=== PATIENT | female | born 1985 | race Caucasian/White ===

== ENCOUNTER 2017-12-29 12:18 | Emergency (ER) | payer OTHER ==
[~2017-12-29] VITALS: Ht 165.1 cm; Wt 127.0 kg
[~2017-12-29 12:18] MED LIST: CITA10TA8 PO; FERR325T59 PO; HYDR-925 PO; LEVO125T6 PO; LEVO175T2 PO; METR500T PO; NITR100C58 PO; NORG1TAB6 PO; PANT40TA3 PO; PNV1TABL PO; PREN1TAB59 PO; [UNRECOGNIZED DRUG - CODE] IM
--- NOTE | 2017-12-29 12:23 | NUR ---
ARRIVAL PT ARRIVED AMBULATORY TO ER 6 C/O NAUSEA, VOMITING AND DIARRHEA ONSET THIS AM AT 0700. NO ABDOMINAL PAIN. NO ACUTE DISTRESS NOTED. EDP NOTIFIED OF PT ARRIVAL.
[2017-12-29 12:33] VITALS: BP 135/90
[2017-12-29] MEDS ORDERED: IMODIUM PO STA (12:46)
[2017-12-29] MEDS ORDERED: ZOFRAN ODT SL STA (12:46)
--- NOTE | 2017-12-29 12:50 | ER.PDOC ---
General Chief Complaint: Nausea,Vomiting,Diarrhea Stated Complaint: N/V/D Time seen by MD: 12:47 Source: patient Exam Limitations: no limitations History of Present Illness Initial Comments Nausea/vomiting/diarrhea this morning. Diarrhea x4 with occasional abdominal cramps. Severity/Quality: mild, cramping Associated Symptoms (vomiting): mild vomiting Associated Symptoms (diarrhea): watery Allergies: Coded Allergies: No Known Allergies (Unverified , 06/25/15) Home Meds Active Scripts Hydrocodone Bit/Acetaminophen (NORCO 7.5-325 TABLET) 7.5-3,251 Ea Tablet, 2 EACH PO Q4H PRN for Pain 7-10 when tolerating PO, #60 TABLET 0 Refills Prov:JESSICA HILL MD 06/28/15 Reported Medications Pantoprazole Sodium (PROTONIX) 40 Mg Tablet.dr, 1 TAB PO DAILY, #30 TAB 5 Refills 04/14/15 Levothyroxine Sodium (SYNTHROID) 175 Mcg Tablet, 175 MCG PO DAILY for HYPOTHYROID, #30 TABLET 1 Refill 09/20/13 Vital Signs First Vital Signs Date Time Temp Pulse Resp B/P (MAP) Pulse Ox O2 Delivery O2 Flow Rate FiO2 12/29/17 12:30 97.6 87 17 100 Room Air 97.6 12/29/17 12:33 135/90 (105) Last Vital Signs Date Time Temp Pulse Resp B/P (MAP) Pulse Ox O2 Delivery O2 Flow Rate FiO2 12/29/17 12:33 97.6 92 17 135/90 (105) 100 Room Air 97.6 Past Medical History Medical History: thyroid disease Surgical History: LMP (females 10-50): this week Social History Smoking: non-smoker Alcohol Use: none Drug Use: none Constitutional: no symptoms reported EENTM: no symptoms reported Respiratory: no symptoms reported Cardiovascular: no symptoms reported Gastrointestinal: see HPI Genitourinary: no symptoms reported All Other Systems: Reviewed and Negative Physical Exam General Appearance: No Apparent Distress, WD/WN HEENT: PERRL/EOMI, Normal ENT Inspection, TMs Normal, Pharynx Normal Neck: Non-Tender, Full Range of Motion, Supple, Normal Inspection Respiratory: chest non-tender, lungs clear, normal breath sounds, no respiratory distress, no accessory muscle use Cardiovascular: Normal Peripheral Pulses, Regular Rate, Rhythm, No Edema, No Gallop, No JVD, No Murmur Gastrointestinal: Normal Bowel Sounds, Non Tender, Soft Back: Normal Inspection, No CVA Tenderness, No Vertebral Tenderness Extremities: Normal Range of Motion, Non-Tender, Normal Inspection, No Pedal Edema, No Calf Tenderness, Normal Capillary Refill, Pelvis Stable Neurologic/Psychiatric: department administrator II-XII NML as Tested, No Motor/Sensory Deficits, Alert, Normal Mood/Affect, Oriented x 3 Skin: Normal Color, Warm/Dry Lymphatic: No Adenopathy Departure Time of Disposition: 12:48 Disposition: 01 HOME, SELF-CARE Impression: Primary Impression: Gastroenteritis Condition: Improved Referrals: DAKOTAH OWUSU MD (PCP) PRIMARY CARE PROVIDER Additional Instructions: Phenergan Imodium Start feeding with clear liquids and advance diet as tolerated. F/U with your PCP in 2-3 days Duration or Time Spent with Pa: 30 mins MARY WORLEY MD Dec 29, 2017 12:50
[2017-12-29 13:00] VITALS: BP 122/78
[2017-12-29] MEDS ORDERED: ZOFRAN ODT ONE (13:00)
[2017-12-29] MEDS ORDERED: IMODIUM ONE (13:00)
[2017-12-29 13:12] VITALS: BP 135/90
== END 2017-12-29 13:02 | disposition home or self-care (01) ==
LOC: ER 12:18
DX: K52.9 Noninfective gastroenteritis and colitis, unspecified (principal); E07.9 Disorder of thyroid, unspecified; Z79.899 Other long term (current) drug therapy
CPT/HCPCS: 99283; Q0162

== ENCOUNTER 2018-01-01 08:41 | Emergency (ER) | payer OTHER ==
[2018-01-01] MEDS ORDERED: ZOFRAN ODT SL STA (09:07)
[2018-01-01] MEDS ORDERED: LOMOTIL PO STA (09:07)
[2018-01-01] MEDS ORDERED: ZOFRAN ODT ONE ×2 (09:11→10:11)
[2018-01-01] MEDS ORDERED: LOMOTIL ONE (09:11)
[2018-01-01 09:15] VITALS: BP 129/62
--- NOTE | 2018-01-01 09:16 | NUR ---
Lab Lab in for bloodwork. lw
--- NOTE | 2018-01-01 09:17 | NUR ---
Arrival Patient comes to ER with the complaint of nausea vomiting and diahrea. Patient states that she was seen in our ER on Wednesday with the same complaint but has not felt better since she has left. Patient says that she was given phenergran and imodium but did not have the money to get the medication filled at that time. Patient is laying on gurny in stable condition at this time.
--- NOTE | 2018-01-01 09:20 | ER.PDOC ---
General Chief Complaint: Requesting Medical Care Stated Complaint: NAUSEA,VOMITING,DIARRHEA Time seen by MD: 09:00 Source: patient Exam Limitations: no limitations History of Present Illness Severity/Quality: mild Associated Symptoms (diarrhea): mild, watery Prior symptoms/Treatment: Similar symptoms previous, Recenly Seen, Treated by Doctor (non compliance ) Allergies: Coded Allergies: No Known Allergies (Unverified , 06/25/15) Home Meds Active Scripts Hydrocodone Bit/Acetaminophen (NORCO 7.5-325 TABLET) 7.5-3,251 Ea Tablet, 2 EACH PO Q4H PRN for Pain 7-10 when tolerating PO, #60 TABLET 0 Refills Prov:JESSICA HILL MD 06/28/15 Reported Medications Pantoprazole Sodium (PROTONIX) 40 Mg Tablet.dr, 1 TAB PO DAILY, #30 TAB 5 Refills 04/14/15 Levothyroxine Sodium (SYNTHROID) 175 Mcg Tablet, 175 MCG PO DAILY for HYPOTHYROID, #30 TABLET 1 Refill 09/20/13 Vital Signs First Vital Signs Date Time Temp Pulse Resp B/P (MAP) Pulse Ox O2 Delivery O2 Flow Rate FiO2 12/29/17 13:12 92 01/01/18 09:12 97.6 20 99 Room Air 97.6 01/01/18 09:15 129/62 (84) Last Vital Signs Date Time Temp Pulse Resp B/P (MAP) Pulse Ox O2 Delivery O2 Flow Rate FiO2 01/01/18 09:54 80 18 129/62 (84) 97 Room Air 01/01/18 09:15 97.6 97.6 Past Medical History Medical History: no pertinent history Surgical History: Family History Significant Family History: no pertinent family hx Social History Smoking: non-smoker Alcohol Use: none Drug Use: none Reviewed Nursing Reviewed: Vital Signs, Abn. Noted All Other Systems: Reviewed and Negative Physical Exam General Appearance: No Apparent Distress, WD/WN HEENT: PERRL/EOMI, Normal ENT Inspection, TMs Normal, Pharynx Normal Neck: Non-Tender, Full Range of Motion, Supple, Normal Inspection Respiratory: chest non-tender, lungs clear, normal breath sounds, no respiratory distress, no accessory muscle use Gastrointestinal: Normal Bowel Sounds, Non Tender, Soft Back: Normal Inspection, No CVA Tenderness, No Vertebral Tenderness Extremities: Normal Range of Motion, Non-Tender, Normal Inspection, No Pedal Edema, No Calf Tenderness, Normal Capillary Refill, Pelvis Stable 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 NML as Tested, No Motor/Sensory Deficits, Alert, Normal Mood/Affect, Oriented x 3 Skin: Normal Color, Warm/Dry Lymphatic: No Adenopathy Results/Orders Results/Orders Laboratory Tests Test 01/01/18 09:20 White Blood Count 7.2 10^3/uL (4.5-11.0) Red Blood Count 5.14 10^6/uL (4.00-5.20) Hemoglobin 12.1 g/dL (12.0-15.0) Hematocrit 38.6 % (36.0-46.0) Mean Corpuscular Volume 75.1 fL (78-100) Mean Corpuscular Hemoglobin 23.5 pg (26-34) Mean Corpuscular Hemoglobin Concent 31.3 g/dL (33-37) Red Cell Distribution Width 17.0 % (11.5-14.5) Platelet Count 350 10^3/uL (150-400) Mean Platelet Volume 10.8 fL (7.8-11.0) Neutrophils (%) (Auto) 77.0 % (41.0-85.0) Lymphocytes (%) (Auto) 15.8 % (24.0-44.0) Monocytes (%) (Auto) 5.1 % (5.0-12.0) Neutrophils # (Auto) 5.5 10^3/uL (1.8-7.7) Lymphocytes # (Auto) 1.1 10^3/uL (1.0-4.8) Monocytes # (Auto) 0.4 10^3/uL (0.3-0.8) Absolute Immature Granulocyte (auto 0 10^3 u/L (0-2) Eosinophils % 1.8 % (0.0-5.0) Basophils % 0.3 % (0.0-0.2) Basophils # 0.0 10^3/uL (0.0-0.1) Eosinophil Count 0.1 10^3/uL (0.0-0.2) Prothrombin Time 9.6 SEC (9.8-11.9) Prothrombin Time INR (Non-Therap) 1.0 Activated Partial Thromboplast Time 27.6 SEC (24.67-30.72) Urine Collection Type CCMS Urine Color YELLOW (YELLOW) Urine Appearance CLEAR (CLEAR) Urine Bilirubin NEGATIVE MG/DL (NEGATIVE) Urine Ketones NEGATIVE (NEGATIVE) Urine Specific [place] 1.005 (1.005-1.035) Urine pH 6 (5.0-6.0) Urine Protein NEGATIVE (NEGATIVE) Urine Urobilinogen NORMAL (NEGATIVE) Urine Nitrate NEGATIVE (NEGATIVE) Urine Leukocyte Esterase NEGATIVE (NEGATIVE) Urine Blood NEGATIVE (NEGATIVE) Urine Glucose NORMAL (NEGATIVE) Sodium Level 139 mmol/L (132-145) Potassium Level 4.7 mmol/L (3.6-5.2) Chloride Level 103.0 mmol/L (96-109) Carbon Dioxide Level 28.4 mmol/L (20.0-32) Anion Gap 12.3 Blood Urea Nitrogen 10 mg/dL (7-18) Creatinine 0.98 mg/dL (0.59-1.40) Estimated GFR () 79.1 (>/=60) BUN/Creatinine Ratio 10.0 Glucose Level 133 mg/dL (70-110) Calcium Level 9.5 mg/dL (8.4-10.5) Total Bilirubin 0.2 mg/dL (0.2-1.0) Aspartate Amino Transf (AST/SGOT) 16 U/L (0-35) Alanine Aminotransferase (ALT/SGPT) 28 U/L (12-78) Alkaline Phosphatase 88 U/L (50-136) Total Protein 8.1 g/dL (6.4-8.2) Albumin 3.7 g/dL (3.4-5.0) Globulin 4.4 Amylase Level 44 U/L (25-115) Lipase 173 U/L (114-286) Serum HCG, Qualitative NEGATIVE (NEGATIVE) Percent Immature Gran (Cell Imm) 0.00 % (0.00-0.50) Helicobacter pylori Screen POSITIVE (NEGATIVE) Administered Medications Medications (Trade) Dose Ordered Sig/Fer Route PRN Reason Start Time Stop Time Status Last Admin Dose Admin Ondansetron HCl (Zofran Odt) 4 mg STAT STAT SL 01/01/18 09:07 01/01/18 09:09 DC 01/01/18 09:16 Diphenoxylate HCl/ Atropine (Lomotil) 2 each STAT STAT PO 01/01/18 09:07 01/01/18 09:09 DC 01/01/18 09:16 Promethazine HCl (Phenergan) 25 mg STAT STAT IM 01/01/18 09:45 01/01/18 09:48 DC 01/01/18 09:53 Departure Time of Disposition: 10:00 Disposition: 01 HOME, SELF-CARE Impression: Primary Impression: Gastroenteritis Condition: Improved Referrals: DAKOTAH OWUSU MD (PCP) PRIMARY CARE PROVIDER Duration or Time Spent with Pa: 1 hr KRYSTAL ROBERSON MD Jan 01, 2018 09:20
[2018-01-01 09:27] LABS: BASOPHIL % 0.3 % (0.0-0.2); EOSINOPHIL # 0.1 10^3/uL (0.0-0.2); EOSINOPHIL % 1.8 % (0.0-5.0); HEMOGLOBIN 12.1 g/dL (12.0-15.0); LYMPHOCYTES # 1.1 10^3/uL (1.0-4.8); LYMPHOCYTES % 15.8 % (24.0-44.0); MEAN CELL HGB 23.5 pg (26-34); MEAN CELL HGB CONCENTRATION 31.3 g/dL (33-37); MEAN CORP VOLUME 75.1 fL (78-100); MEAN PLATELET VOLUME 10.8 fL (7.8-11.0); MONOCYTES # 0.4 10^3/uL (0.3-0.8); MONOCYTES % 5.1 % (5.0-12.0); NEUTROPHIL # 5.5 10^3/uL (1.8-7.7); WHITE BLOOD CELL 7.2 10^3/uL (4.5-11.0)
[2018-01-01 09:29] LABS: BILIRUBIN,URINE NEGATIVE (NEGATIVE); UROBILINOGEN,URINE NORMAL (NEGATIVE)
[2018-01-01 09:34] LABS: APPEARANCE,URINE CLEAR (CLEAR); UA COLOR YELLOW (YELLOW)
[2018-01-01] MEDS ORDERED: PHENERGAN IM STA (09:45)
[2018-01-01] MEDS ORDERED: PHENERGAN ONE (09:47)
[2018-01-01 09:48] LABS: HCG QUALITATIVE SERUM NEGATIVE (NEGATIVE)
[2018-01-01 09:53] LABS: CALCIUM 9.5 mg/dL (8.4-10.5); CARBON DIOXIDE 28.4 mmol/L (20.0-32)
--- NOTE | 2018-01-01 09:53 | NUR ---
Nause Continues to feel nauseated. Meds given as per doctors order. lw
[2018-01-01 09:54] VITALS: BP 129/62
[2018-01-01 10:53] VITALS: BP 129/62
== END 2018-01-01 10:52 | disposition home or self-care (01) ==
LOC: ER 08:41
DX: K52.9 Noninfective gastroenteritis and colitis, unspecified (principal); R79.1 Abnormal coagulation profile; Z79.899 Other long term (current) drug therapy
CPT/HCPCS: 36415; 80053; 81002; 82150; 83690; 84703; 85025; 85610; 85730; 86677; 96372; 99284; J2550; Q0162 ×2

== ENCOUNTER 2018-03-09 09:45 | Emergency (ER) | payer OTHER ==
[~2018-03-09] VITALS: Ht 165.1 cm; Wt 126.6 kg
[~2018-03-09 09:45] MED LIST changes: +HYDR-3469 PO; -HYDR-925 PO; -PNV1TABL PO; +PNV1TABL31 PO
[2018-03-09 10:04] VITALS: BP 145/101
--- NOTE | 2018-03-09 10:40 | ER.PDOC ---
General Chief Complaint: General Complaint Stated Complaint: HEAD ACHE, HIGH BLOOD PRESSURE Time seen by MD: 10:15 Exam Limitations: no limitations History of Present Illness Initial Comments Pt c/o frontal CRAIG x 4 days-she has taken advil and tylenol and each relieves CRAIG for a few hours but then it returns. She chcked her BP several times and was concerned that it was 130-140 systolic, higher than her usual systolic of 120-130. She denies any chest pain or SOB or blurred or double vision. Timing/Duration: other (4 days) Severity/Quality: moderate Prior Headaches/Recent Trauma: occasional headaches Associated Symptoms: denies symptoms Allergies: Coded Allergies: No Known Allergies (Unverified , 06/25/15) Home Meds Active Scripts Hydrocodone Bit/Acetaminophen (NORCO 7.5-325 TABLET) 7.5-3,251 Ea Tablet, 2 EACH PO Q4H PRN for Pain 7-10 when tolerating PO, #60 TABLET 0 Refills Prov:JESSICA HILL MD 06/28/15 Reported Medications Pantoprazole Sodium (PROTONIX) 40 Mg Tablet.dr, 1 TAB PO DAILY, #30 TAB 5 Refills 04/14/15 Levothyroxine Sodium (SYNTHROID) 175 Mcg Tablet, 175 MCG PO DAILY for HYPOTHYROID, #30 TABLET 1 Refill 09/20/13 Past Medical History Surgical History: LMP (females 10-50): last week Social History Smoking: non-smoker Alcohol Use: none Drug Use: none Reviewed Nursing Reviewed: Vital Signs, Abn. Noted, Nursing Assessment Review of Systems Constitutional: denies no symptoms reported, denies see HPI, denies chills, denies diaphoresis, denies fever, denies malaise, denies weakness, denies other Eyes: denies no symptoms reported, denies see HPI, denies blindness, denies blurred vision, denies drainage, denies decreased acuity, denies foreign body sensation, denies inflammation, denies pain, denies photophobia, denies previous injury, denies shadows, denies tunnel vision, denies vision change, denies contact lenses, denies glasses, denies other Ears, Nose, Mouth, Throat: denies no symptoms reported, denies see HPI, denies ear pain, denies ear discharge, denies nose pain, denies nose discharge, denies epistaxis, denies mouth pain, denies mouth swelling, denies loose teeth, denies throat pain, denies throat swelling Respiratory: denies no symptoms reported, denies see HPI, denies cough, denies orthopnea, denies shortness of breath, denies stridor, denies wheezing, denies other Cardiovascular: denies no symptoms reported, denies see HPI, denies chest pain , denies edema, denies palpitations, denies syncope, denies other Gastrointestinal: denies no symptoms reported, denies see HPI, denies abdominal pain, denies constipation, denies diarrhea, denies nausea, denies vomiting, denies other Genitourinary: denies no symptoms reported, denies see HPI, denies discharge, denies dysuria, denies frequency, denies hematuria, denies pain, denies other Musculoskeletal: denies no symptoms reported, denies see HPI, denies back pain , denies gout, denies joint pain, denies joint swelling, denies muscle pain, denies muscle stiffness, denies neck pain, denies other Psychiatric/Neurological: denies no symptoms reported, denies see HPI, denies anxiety, denies depressed, denies emotional problems; headache; denies numbness , denies paresthesia, denies pre-existing deficit, denies seizure, denies tingling, denies tremors, denies weakness, denies other All Other Systems: Reviewed and Negative Physical Exam General Appearance: No Apparent Distress, WD/WN Head/Eyes: eyes nml inspection, no facial swelling, no nystagmus, PERRL ENT: pharynx nml (nasal mucosa erythematous with edsema bilaterally- almost occluding nares bilaterally; sinuses nontender bilat) Neck: nml inspection, Supple Cardiovascular: Normal Peripheral Pulses, Regular Rate, Rhythm, No Edema, No Gallop, No JVD, No Murmur Respiratory: chest non-tender, lungs clear, normal breath sounds, no respiratory distress, no accessory muscle use Gastrointestinal: Normal Bowel Sounds, No Organomegaly, No Pulsatile Mass, Non Tender, Soft Back: Normal Inspection, No CVA Tenderness, No Vertebral Tenderness Extremities: Normal Range of Motion, Non-Tender, Normal Inspection, No Pedal Edema, No Calf Tenderness, Normal Capillary Refill Psychiatric: Alert, Oriented x 3 Cranial Nerves: Normal Hearing, Normal Speech, PERRL Coordination/Gait: Normal Gait Motor/Sensory: No Motor Deficit, No Sensory Deficit Skin: Warm/Dry, Normal Color Lymphatic: No Adenopathy Departure Time of Disposition: 10:37 Disposition: 01 HOME, SELF-CARE Impression: Primary Impression: Rhinitis, allergic Condition: Stable Patient Instructions: Allergic Rhinitis Referrals: DAKOTAH OWUSU MD (PCP) PRIMARY CARE PROVIDER Comments rx zyrtec 10 mg po q 12 hr prn allergies #60 Duration or Time Spent with Pa: 15 CHACHO RAMIREZ MD Mar 09, 2018 10:40
[2018-03-09 10:56] VITALS: BP 125/83
[2018-03-09 10:59] VITALS: BP 125/83
== END 2018-03-09 10:56 | disposition home or self-care (01) ==
LOC: ER 09:45
DX: J30.9 Allergic rhinitis, unspecified (principal); Z79.899 Other long term (current) drug therapy
CPT/HCPCS: 99282

== ENCOUNTER 2019-01-28 14:54 | Emergency (ER) | payer OTHER ==
[~2019-01-28] VITALS: Ht 165.1 cm; Wt 122.0 kg
[2019-01-28 15:12] VITALS: BP 141/77
--- NOTE | 2019-01-28 15:13 | NUR ---
ARRIVAL PATIENT ARRIVED TO ED6 AMBULATORY, C/O OF DIZZINESS AND NAUSEA THAT STARTED APPROX 40 MINUTES MANAGER BILINGUAL, DIZZINESS CONTINUED, PATIENT CAME TO THE ED FOR EVALUATION AND TREAT.
[2019-01-28] MEDS ORDERED: ANTIVERT PO STA (15:24)
--- NOTE | 2019-01-28 15:26 | ER.PDOC ---
General Chief Complaint: General Complaint Stated Complaint: FAINTED/ DIZZINESS Time seen by MD: 15:33 Source: patient Exam Limitations: no limitations History of Present Illness Occurred: just prior to arrival Associated Symptoms: nausea/vomiting, sense of movement, spinning, falling Decreased Ability to Stand: off balance Usually: walks w/o assistance Worsened By: changing position, movement of head Prior symptoms/Treatment: Similar symptoms previous Allergies: Coded Allergies: No Known Allergies (Unverified , 06/25/15) Home Meds Active Scripts Hydrocodone Bit/Acetaminophen (NORCO 7.5-325 TABLET) 7.5-3,251 Ea Tablet, 2 EACH PO Q4H PRN for Pain 7-10 when tolerating PO, #60 TABLET 0 Refills Prov:JESSICA HILL MD 06/28/15 Reported Medications Pantoprazole Sodium (PROTONIX) 40 Mg Tablet.dr, 1 TAB PO DAILY, #30 TAB 5 Refills 04/14/15 Levothyroxine Sodium (SYNTHROID) 175 Mcg Tablet, 175 MCG PO DAILY for HYPOTHYROID, #30 TABLET 1 Refill 09/20/13 Past Medical History Medical History: thyroid disease Surgical History: Social History Smoking: non-smoker Alcohol Use: none Drug Use: none Reviewed Nursing Reviewed: Vital Signs, Abn. Noted Review of Systems All Other Systems: Reviewed and Negative Physical Exam General Appearance: alert, no distress EENT: nml eye inspection, PERRL, no nystagmus, nml ENT inspection, pharynx nml, TM's nml Neck: supple Respiratory: no resp distress, breath sounds nml CVS: reg rate & rhythm, heart sounds.nml Abdomen: non-tender, no organomegaly, no distention Skin: color nml, no rash, warm/dry Extremities: non-tender, nml ROM, no pedal edema Neuro/Psych: nml orientation, nml speech/cognition, nml mood/affect Cranial Nerves: nml as tested, no evidence of acute CVA Cerebellar: nml as tested Sensorimotor: nml motor, nml sensation Results/Orders Results/Orders Orders - KRYSTAL ROBERSON MD Cbc With Auto Diff (01/28/19 15:24) Comprehensive Metabolic Panel (01/28/19 15:24) Creatine Kinase (01/28/19 15:24) Troponin I (01/28/19 15:24) Probnp B-Type Fertilizer Mixer (01/28/19 15:24) PT (01/28/19 15:24) Partial Thromboplastin Time. (01/28/19 15:24) Helicobacter Pylori (01/28/19 15:24) D-Dimer (01/28/19 15:24) Ekg-Routine (01/28/19 15:24) Meclizine Hcl (Antivert) (01/28/19 15:24) Vital Signs Date Time Temp Pulse Resp B/P (MAP) Pulse Ox O2 Delivery O2 Flow Rate FiO2 01/28/19 16:17 97.5 81 18 115/54 (74) 99 Room Air 01/28/19 15:12 97.5 95 18 141/77 (98) 99 Room Air 01/28/19 15:10 97.5 95 18 99 Room Air 01/28/19 15:09 97.5 95 18 Administered Medications Medications (Trade) Dose Ordered Sig/Fer Route PRN Reason Start Time Stop Time Status Last Admin Dose Admin Meclizine HCl (Antivert) 25 mg STAT STAT PO 01/28/19 15:24 01/28/19 15:26 DC 01/28/19 15:30 25 MG Laboratory Tests Test 01/28/19 15:38 White Blood Count 7.6 10^3/uL (4.5-11.0) Red Blood Count 4.82 10^6/uL (4.00-5.20) Hemoglobin 10.3 g/dL (12.0-15.0) L Hematocrit 34.3 % (36.0-46.0) L Mean Corpuscular Volume 71.2 fL (78-100) L Mean Corpuscular Hemoglobin 21.4 pg (26-34) L Mean Corpuscular Hemoglobin Concent 30.0 g/dL (33-37) L Red Cell Distribution Width 17.8 % (11.5-14.5) H Platelet Count 366 10^3/uL (150-400) Mean Platelet Volume 10.5 fL (7.8-11.0) Neutrophils (%) (Auto) 71.3 % (41.0-85.0) Lymphocytes (%) (Auto) 21.2 % (24.0-44.0) L Monocytes (%) (Auto) 5.5 % (5.0-12.0) Neutrophils # (Auto) 5.4 10^3/uL (1.8-7.7) Lymphocytes # (Auto) 1.6 10^3/uL (1.0-4.8) Monocytes # (Auto) 0.4 10^3/uL (0.3-0.8) Absolute Immature Granulocyte (auto 0 10^3 u/L (0-2) Immature Granulocytes % 0.00 % (0.00-0.50) Eosinophils % 1.7 % (0.0-5.0) Basophils % 0.3 % (0.0-0.2) H Basophils # 0.0 10^3/uL (0.0-0.1) Eosinophil Count 0.1 10^3/uL (0.0-0.2) Prothrombin Time 10.1 SEC (9.4-11.5) Prothrombin Time INR (Non-Therap) 1.0 Activated Partial Thromboplast Time 22.3 SEC (24.67-30.72) D-Dimer 0.48 mg/L (0.19-0.49) Sodium Level 140 mmol/L (132-145) Potassium Level 3.8 mmol/L (3.6-5.2) Chloride Level 106.0 mmol/L (96-109) Carbon Dioxide Level 26.7 mmol/L (20.0-32) Anion Gap 11.1 Blood Urea Nitrogen 13 mg/dL (7-18) Creatinine 0.82 mg/dL (0.59-1.40) Estimated GFR () 96.6 (>/=60) BUN/Creatinine Ratio 15.0 Glucose Level 114 mg/dL (70-110) H Calcium Level 8.6 mg/dL (8.4-10.5) Total Bilirubin 0.2 mg/dL (0.2-1.0) Aspartate Amino Transferase (AST) 15 U/L (0-35) Alanine Aminotransferase (ALT) 17 U/L (12-78) Alkaline Phosphatase 78 U/L (50-136) Total Creatine Kinase 102 U/L (26-192) Troponin I < 0.02 ng/mL (0.00-0.05) Pro-B-Type Natriuretic Peptide 90 pg/mL (0-125) Total Protein 7.3 g/dL (6.4-8.2) Albumin 3.3 g/dL (3.4-5.0) L Globulin 4.0 Helicobacter pylori Screen POSITIVE (NEGATIVE) EKG/XRAY/CT/US EKG: NSR, no ST T wave changes Course Sepsis Screening Results: Posi: POSITIVE SEPSIS RISK Duration or Total Time Spent w: 15 Vitals & review Data Vital Sign - Last 24 Hours 01/28/19 01/28/19 01/28/19 01/28/19 15:09 15:10 15:12 16:17 Temp 97.5 97.5 97.5 97.5 Pulse 95 95 95 81 Resp 18 18 18 18 B/P (MAP) 141/77 (98) 115/54 (74) Pulse Ox 99 99 99 O2 Delivery Room Air Room Air Room Air Laboratory Tests Test 01/28/19 15:38 White Blood Count 7.6 10^3/uL Red Blood Count 4.82 10^6/uL Hemoglobin 10.3 g/dL Hematocrit 34.3 % Mean Corpuscular Volume 71.2 fL Mean Corpuscular Hemoglobin 21.4 pg Mean Corpuscular Hemoglobin Concent 30.0 g/dL Red Cell Distribution Width 17.8 % Platelet Count 366 10^3/uL Mean Platelet Volume 10.5 fL Neutrophils (%) (Auto) 71.3 % Lymphocytes (%) (Auto) 21.2 % Monocytes (%) (Auto) 5.5 % Neutrophils # (Auto) 5.4 10^3/uL Lymphocytes # (Auto) 1.6 10^3/uL Monocytes # (Auto) 0.4 10^3/uL Absolute Immature Granulocyte (auto 0 10^3 u/L Immature Granulocytes % 0.00 % Eosinophils % 1.7 % Basophils % 0.3 % Basophils # 0.0 10^3/uL Eosinophil Count 0.1 10^3/uL Prothrombin Time 10.1 SEC Prothrombin Time INR (Non-Therap) 1.0 Activated Partial Thromboplast Time 22.3 SEC D-Dimer 0.48 mg/L Sodium Level 140 mmol/L Potassium Level 3.8 mmol/L Chloride Level 106.0 mmol/L Carbon Dioxide Level 26.7 mmol/L Anion Gap 11.1 Blood Urea Nitrogen 13 mg/dL Creatinine 0.82 mg/dL Estimated GFR () 96.6 BUN/Creatinine Ratio 15.0 Glucose Level 114 mg/dL Calcium Level 8.6 mg/dL Total Bilirubin 0.2 mg/dL Aspartate Amino Transf (AST/SGOT) 15 U/L Alanine Aminotransferase (ALT/SGPT) 17 U/L Alkaline Phosphatase 78 U/L Total Creatine Kinase 102 U/L Troponin I < 0.02 ng/mL Pro-B-Type Natriuretic Peptide 90 pg/mL Total Protein 7.3 g/dL Albumin 3.3 g/dL Globulin 4.0 Helicobacter pylori Screen POSITIVE Sepsis Infection Criteria Pres: None O2 Sat by Pulse Oximetry: 99 Departure Time of Disposition: 16:33 Disposition: 01 HOME, SELF-CARE Impression: Primary Impression: BPPV (benign paroxysmal positional vertigo) Condition: Improved Referrals: DAKOTAH OWUSU MD (PCP) PRIMARY CARE PROVIDER Duration or Time Spent with Pa: 20 min KRYSTAL ROBERSON MD Jan 28, 2019 15:26
--- NOTE | 2019-01-28 15:44 | PCM.EKG ---
[facility] Test Date: 2019-01-28 Test Time: 15:45:36 Pat Name: NADER AGUAYO Department: Room: Gender: F Senior Investment Manager: MIGUEL ÁNGEL : 1985 Requested By: KRYSTAL ROBERSON Order Number: [id number] Reading MD: Measurements Intervals [place] Rate: 85 P: 36 MN: 136 QRS: 29 QRSD: 92 T: 29 QT: 386 QTc: 459 Interpretive Statements Normal sinus rhythm Normal ECG No previous ECG available for comparison Please click the below link to view image of tracing.
[2019-01-28 15:49] LABS: BASOPHIL % 0.3 % (0.0-0.2); EOSINOPHIL # 0.1 10^3/uL (0.0-0.2); EOSINOPHIL % 1.7 % (0.0-5.0); HEMOGLOBIN 10.3 g/dL (12.0-15.0); LYMPHOCYTES # 1.6 10^3/uL (1.0-4.8); LYMPHOCYTES % 21.2 % (24.0-44.0); MEAN CELL HGB 21.4 pg (26-34); MEAN CORP VOLUME 71.2 fL (78-100); MEAN PLATELET VOLUME 10.5 fL (7.8-11.0); MONOCYTES # 0.4 10^3/uL (0.3-0.8); MONOCYTES % 5.5 % (5.0-12.0); NEUTROPHIL # 5.4 10^3/uL (1.8-7.7); NEUTROPHILS % 71.3 % (41.0-85.0); PLATELET COUNT 366 10^3/uL (150-400); RED CELL DISTRIBUTION WIDTH 17.8 % (11.5-14.5); WHITE BLOOD CELL 7.6 10^3/uL (4.5-11.0)
[2019-01-28 16:09] LABS: ALANINE AMINOTRANSFERASE(ML) 17 U/L (12-78); ALKALINE PHOSPHATASE 78 U/L (50-136); ASPARTATE AMINO TRANSFERASE 15 U/L (0-35); CALCIUM 8.6 mg/dL (8.4-10.5); CARBON DIOXIDE 26.7 mmol/L (20.0-32); GLUCOSE 114 mg/dL (70-110)
[2019-01-28 16:17] VITALS: BP 115/54
[2019-01-28 16:34] VITALS: BP 115/54
[2019-01-28 17:52] LABS: ANISOCYTOSIS 1+ (NEGATIVE); MICROCYTOSIS 1+ (NEGATIVE)
== END 2019-01-28 16:42 | disposition home or self-care (01) ==
LOC: ER 14:54
DX: H81.10 Benign paroxysmal vertigo, unspecified ear (principal); R11.2 Nausea with vomiting, unspecified; E07.9 Disorder of thyroid, unspecified; R79.1 Abnormal coagulation profile; Z79.891 Long term (current) use of opiate analgesic; Z79.899 Other long term (current) drug therapy
CPT/HCPCS: 36415; 80053; 82550; 83880; 84484; 85025; 85379; 85610; 85730; 86677; 93005; 99285; J8597

== ENCOUNTER 2021-05-03 09:49 | Emergency (ER) | payer OTHER ==
[~2021-05-03] VITALS: Ht 165.1 cm; Wt 104.3 kg
[2021-05-03 10:00] VITALS: BP 159/103
[2021-05-03] MEDS ORDERED: TORADOL IM STA (10:04)
--- NOTE | 2021-05-03 10:04 | NUR ---
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
[2021-05-03] MEDS ORDERED: TORADOL ONE (10:05)
--- NOTE | 2021-05-03 10:07 | ER.PDOC ---
General Chief Complaint: Lower Back Pain or Injury Stated Complaint: LOWER BACK PAIN Time seen by MD: 09:57 Source: patient Exam Limitations: no limitations History of Present Illness Initial Comments This is a 35-year-old female who comes to the emergency department with left- sided sciatic pain. She states she has had it off and on for the past 2 to 3 mo nths but last night it worsened. She denies any injury to this area she denies any incontinence of urine or stool. Timing/Duration: yesterday Severity/Quality: severe Radiation: buttocks, lower legs (The pain radiates into the left mid thigh) Allergies: Coded Allergies: No Known Allergies (Unverified , 06/25/15) Home Meds Active Scripts Hydrocodone Bit/Acetaminophen (NORCO 7.5-325 TABLET) 7.5-3,251 Ea Tablet, 2 EACH PO Q4H PRN for Pain 7-10 when tolerating PO, #60 TABLET 0 Refills Prov:JESSICA HILL MD 06/28/15 Reported Medications Pantoprazole Sodium (PROTONIX) 40 Mg Tablet.dr, 1 TAB PO DAILY, #30 TAB 5 Refills 04/14/15 Levothyroxine Sodium (SYNTHROID) 175 Mcg Tablet, 175 MCG PO DAILY for HYPOTHYROID, #30 TABLET 1 Refill 09/20/13 Past Medical History Medical History: thyroid disease, other Surgical History: Social History Alcohol Use: none Drug Use: none Review of Systems Constitutional: denies no symptoms reported, denies see HPI, denies chills, denies diaphoresis, denies fever, denies malaise, denies weakness, denies other EENTM: denies no symptoms reported, denies see HPI, denies eye pain, denies blurred vision, denies tearing, denies double vision, denies ear pain, denies ear discharge, denies nose pain, denies nose congestion, denies throat pain, denies throat swelling, denies mouth pain, denies mouth swelling, denies other Respiratory: denies no symptoms reported, denies see HPI, denies cough, denies orthopnea, denies shortness of breath, denies stridor, denies wheezing, denies other Cardiovascular: denies no symptoms reported, denies see HPI, denies chest pain, denies edema, denies palpitations, denies syncope, denies other Gastrointestinal: denies no symptoms reported, denies see HPI, denies abdominal pain, denies constipation, denies diarrhea, denies nausea, denies vomiting, denies other Genitourinary: denies no symptoms reported, denies see HPI, denies discharge, denies dysuria, denies frequency, denies hematuria, denies pain, denies other Musculoskeletal: denies no symptoms reported, denies see HPI; back pain; denies gout, denies joint pain, denies joint swelling; muscle pain; denies muscle stiffness, denies neck pain, denies other Skin: denies no symptoms reported, denies see HPI, denies change in color, denies change in hair/nails, denies dryness, denies lesions, denies lumps, denies rash, denies other Psychiatric/Neurological: denies no symptoms reported, denies see HPI, denies anxiety, denies depressed, denies emotional problems, denies headache, denies numbness, denies paresthesia, denies pre-existing deficit, denies seizure, denies tingling, denies tremors, denies weakness, denies other All Other Systems: Reviewed and Negative Physical Exam General Appearance: WD/WN, Moderate Distress HEENT: PERRL/EOMI, Normal ENT Inspection, TMs Normal, Pharynx Normal Neck: Non-Tender, Normal Alignment Cardiovascular/Respiratory: Regular Rate, Rhythm, No M/R/G, Normal Peripheral Pulses, No JVD, Normal Breath Sounds, No Respiratory Distress Gastrointestinal: Normal Bowel Sounds, No Organomegaly, No Pulsatile Mass, Non Tender, Soft Back: Normal Inspection, No CVA Tenderness, No Vertebral Tenderness Extremities: No Evidence of Injury, Normal Range of Motion, Non-Tender, No Pedal Edema, Pelvis Stable, Other (Tenderness to palpation over the left sciatic exit area.) Neuro/Psych: Alert, 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 ER DEPART Departure Time of Disposition: 10:09 Disposition: 01 HOME / SELF CARE / HOMELESS Impression: Primary Impression: Sciatica Condition: Stable Patient Instructions: Sciatica Referrals: DAKOTAH OWUSU MD (PCP) PRIMARY CARE PROVIDER Additional Instructions: Please ice to the area 4 times a day for 20 minutes each time. Comments Prescription for prednisone and tramadol Duration or Time Spent with Pa: Unknown Problem Qualifiers Primary Impression: Sciatica Laterality: left Qualified Codes: M54.32 - Sciatica, left side JASON WADE MD May 03, 2021 10:07
== END 2021-05-03 10:13 | disposition home or self-care (01) ==
LOC: ER 09:49
DX: M54.42 Lumbago with sciatica, left side (principal)
CPT/HCPCS: 96372; 99283; J1885

== ENCOUNTER 2021-10-13 07:38 | Emergency (ER) | payer OTHER ==
[~2021-10-13] VITALS: Ht 165.1 cm; Wt 122.5 kg
--- NOTE | 2021-10-13 07:46 | NUR ---
ARRIVAL PT AMBULATES TO ED6 WITH C/O SORE THROAT AND BILATERAL EARACHE THAT STARTED WEDNESDAY NIGHT. PT STATES THAT SHE HAS TAKEN IBUPROFEN WITH NO RELIEF. PT RATED PAIN 5/10, DESCRIBED SORENESS. PT TOOK AN AT HOME COVID TEST THAT CAME BACK NEGATIVE YESTERDAY. PTS AFEBRILE AT 98.1. ON INSPECTION THE PTS THROAT HAS REDNESS AND EDEMA NOTED. PTS VITALS OBTAINED. NOTIFIED OF PTS ARRIVAL.
[2021-10-13 07:53] VITALS: BP 132/88
[2021-10-13 08:02] VITALS: BP 132/88
--- NOTE | 2021-10-13 08:21 | ER.PDOC ---
General Chief Complaint: Sore Throat Stated Complaint: SORE THROAT/EAR PAIN Time seen by MD: 08:16 Source: patient Exam Limitations: no limitations History of Present Illness Initial Comments Sore throat and bilateral earache for 3 days. No fever or chills. No cough or runny nose. Timing/Duration: gradual Associated Symptoms: mod sore throat, earache (R), earache (L) Severity: moderate Allergies: Coded Allergies: No Known Allergies (Unverified , 06/25/15) Home Meds Active Scripts Hydrocodone Bit/Acetaminophen (NORCO 7.5-325 TABLET) 7.5-3,251 Ea Tablet, 2 EACH PO Q4H PRN for Pain 7-10 when tolerating PO, #60 TABLET 0 Refills Prov:JESSICA HILL MD 06/28/15 Reported Medications Pantoprazole Sodium (PROTONIX) 40 Mg Tablet.dr, 1 TAB PO DAILY, #30 TAB 5 Refills 04/14/15 Levothyroxine Sodium (SYNTHROID) 175 Mcg Tablet, 175 MCG PO DAILY for HYPOTHYROID, #30 TABLET 1 Refill 09/20/13 Past Medical History Medical History: thyroid disease, other Surgical History: Family History Significant Family History: no pertinent family hx Social History Smoking: non-smoker Alcohol Use: none Drug Use: none Constitutional: no symptoms reported Ears: see HPI Throat: see HPI Respiratory: no symptoms reported Cardiovascular: no symptoms reported Gastrointestinal: no symptoms reported Musculoskeletal: no symptoms reported Skin: no symptoms reported All Other Systems: Reviewed and Negative Physical Exam General Appearance: alert, no distress Head/Neck: head nml inspection, neck nml inspection, trachea midline, no lymphadenopathy, thyroid nml Eyes: eyes nml inspection, PERRL, no nystagmus Mouth: lips, gums nml, no drooling, no thrush, membranes nml Throat: pharyngeal erythema, tonsillar exudate Ears/Nose: nml inspection Respiratory: no resp. distress, lungs clear CVS: reg. rate & rhythm, heart sounds nml Abdomen: non-tender, no organomegaly Extremities: non-tender, ROM nml Skin Exam: Normal Color, Warm/Dry NEURO/PSYCH: oriented X3, mood/effect nml Results/Orders Results/Orders Vital Signs Date Time Temp Pulse Resp B/P (MAP) Pulse Ox O2 Delivery O2 Flow Rate FiO2 10/13/21 08:02 98.1 113 22 132/88 (103) 98 Room Air* 0 21 10/13/21 07:53 98.1 113 22 10/13/21 07:53 98.1 113 22 132/88 (103) 98 Room Air* 0 21 10/13/21 07:53 98.1 113 22 98 ER DEPART Departure Time of Disposition: 08:19 Disposition: 01 HOME / SELF CARE / HOMELESS Impression: Primary Impression: Acute tonsillitis Qualified Codes: J03.90 - Acute tonsillitis, unspecified Additional Impression: Acute pharyngitis Qualified Codes: J02.9 - Acute pharyngitis, unspecified Condition: Stable Referrals: DAKOTAH OWUSU MD (PCP) PRIMARY CARE PROVIDER Additional Instructions: Amoxil Prednisone Chloraseptic spray [id number] as needed for throat pain Follow-up with your PCP in 3 to 5 days Return to ED if worsening symptoms or concerns Duration or Time Spent with Pa: 10 min MARY WORLEY MD October 13, 2021 08:21
[2021-10-13 08:47] VITALS: BP 134/85
== END 2021-10-13 08:50 | disposition home or self-care (01) ==
LOC: ER 07:38
DX: J03.90 Acute tonsillitis, unspecified (principal); E07.9 Disorder of thyroid, unspecified
CPT/HCPCS: 99283

== ENCOUNTER 2022-02-25 12:17 | Emergency (ER) | payer SELFPAY ==
[~2022-02-25] VITALS: Ht 162.6 cm; Wt 104.5 kg
[2022-02-25 12:17] VITALS: BP 158/88
--- NOTE | 2022-02-25 12:17 | NUR ---
ARRIVAL PATIENT ARRIVED TO ED5 AMBULATORY, C/O URINARY URGENCY,FREQUENCY, AND SUPRAPUBIC PAIN TODAY, PATIENT IS CURRENTLY ON HER MENSES AND STATES THIS DOES NOT FEEL LIKE A NORMAL PERIOD, TOOK OVER THE COUNTER MEDICATIONS WITH MINIMAL RELIEF, UA COLLECTED, VITAL SIGNS TAKEN AND DOCTOR NOTIFIED OF PATIENT'S ARRIVAL.
[2022-02-25 12:38] LABS: BILIRUBIN,URINE NEGATIVE (NEGATIVE); UROBILINOGEN,URINE 0.2 E.U./dL (0.2)
[2022-02-25 12:50] LABS: YEAST,URINE FEW (NONE SEEN)
[2022-02-25 12:58] LABS: BASOPHIL # 0.1 10^3/uL (0.0-0.1); BASOPHIL % 0.4 % (0.0-0.2); EOSINOPHIL # 0.1 10^3/uL (0.0-0.2); EOSINOPHIL % 0.7 % (0.0-5.0); LYMPHOCYTES # 1.44 10^3/uL1 (1.0-4.8); LYMPHOCYTES % 11.9 % (24.0-44.0); MEAN CORP HGB 19.8 pg (26-34); MONOCYTES # 0.5 10^3/uL (0.3-0.8); MONOCYTES % 3.8 % (5.0-12.0); NEUTROPHIL # 10.1 10^3/uL (1.8-7.7); NEUTROPHILS % 83.1 % (41.0-85.0); PLATELET COUNT 376 10^3/uL (150-400); RED CELL DISTRIBUTION WIDTH 28.1 % (11.5-14.5)
--- NOTE | 2022-02-25 13:12 | DIREP ---
PROCEDURE:CT ABDOMEN/PELVIS W/O CONTRAST COMPARISON:None. INDICATIONS:abd pain TECHNIQUE:Axial images were created through the abdomen and pelvis without intravenous contrast material. No oral contrast was administered. Sagittal and coronal reconstructions were performed from source images. FINDINGS: LUNG BASES:Normal. No visible pulmonary or pleural disease. LIVER:Normal. No significant liver lesions are identified. BILIARY:Normal. No visible dilatation or calcification. PANCREAS:Normal. No lesion, fluid collection, ductal dilatation, or atrophy. SPLEEN:Normal. No enlargement or focal lesion. ADRENALS:Normal. No mass or enlargement. URINARY TRACT:Normal. No focal lesions or hydronephrosis. No renal or ureteral calculi are seen. AORTA/VASCULAR:Normal. No aneurysm. RETROPERITONEUM:Normal. No mass or adenopathy. BOWEL/MESENTERY:Normal. There is no intestinal obstruction, free fluid, free air or mesenteric inflammatory changes. Normal appearing appendix. ABDOMINAL WALL:A small fat containing periumbilical abdominal wall hernia is seen. There is thinning of the anterior abdominal wall in midline in the periumbilical region. PELVIC ORGANS:The cervix appears mildly prominent and heterogeneous in density on limited images without intravenous contrast. No free fluid is seen in the pelvis. BONES:Normal for age. No bony lesion or acute fracture. OTHER:Negative. CONCLUSION: 1. No acute abnormalities are seen in the abdomen and pelvis. 2. The cervix appears mildly prominent in size and heterogeneous in density on limited images without intravenous contrast. Recommend further evaluation with clinical correlation and direct visualization. Dictated by: Isak Cruz M.D. On 02/25/2022 at 01:03 PM
[2022-02-25 13:15] LABS: CARBON DIOXIDE 23.3 mmol/L (20.0-32)
[2022-02-25 13:39] VITALS: BP 153/66
[2022-02-25] MEDS ORDERED: TORADOL IM STA (13:41)
[2022-02-25] MEDS ORDERED: TORADOL ONE (13:43)
--- NOTE | 2022-02-25 13:46 | ER.PDOC ---
General Chief Complaint: Abdomen Pain Stated Complaint: ABD PAIN Time seen by MD: 13:40 Source: patient Exam Limitations: no limitations History of Present Illness Initial Comments Patient is a 36-year-old female past medical history of UTIs who comes in with a right-sided flank pain over the past couple of days. Patient states that she started her period about 2 days ago and thought that she was having period cramps that she was taking Midol without relief of pain. Patient states that the pain is progressively gotten worse.Patient states that his crampy-like pain encounter radiates towards her groin. Patient states she does not know what makes the pain better or worse. With that the model really has not helped. Patient denies really any other symptoms no pain with urination no nausea vomiting no fevers. Timing/Duration: 24 hours Severity/Quality: mild Radiation: RLQ Associated Symptoms: back pain Exacerbated by: nothing Relieved By: nothing Allergies: Coded Allergies: No Known Allergies (Unverified , 06/25/15) Home Meds Active Scripts Hydrocodone Bit/Acetaminophen (NORCO 7.5-325 TABLET) 7.5-3,251 Ea Tablet, 2 EACH PO Q4H PRN for Pain 7-10 when tolerating PO, #60 TABLET 0 Refills Prov:JESSICA HILL MD 06/28/15 Reported Medications Pantoprazole Sodium (PROTONIX) 40 Mg Tablet.dr, 1 TAB PO DAILY, #30 TAB 5 Refills 04/14/15 Levothyroxine Sodium (SYNTHROID) 175 Mcg Tablet, 175 MCG PO DAILY for HYPOTHYROID, #30 TABLET 1 Refill 09/20/13 Vital Signs First Vital Signs Date Time Temp Pulse Resp B/P (MAP) Pulse Ox O2 Delivery O2 Flow Rate FiO2 02/25/22 12:17 97.8 83 18 99 02/25/22 12:17 158/88 (111) Room Air* 0 21 Last Vital Signs Date Time Temp Pulse Resp B/P (MAP) Pulse Ox O2 Delivery O2 Flow Rate FiO2 02/25/22 12:17 97.8 83 18 158/88 (111) 99 Room Air* 0 21 Past Medical History Medical History: thyroid disease, other Surgical History: Family History Significant Family History: no pertinent family hx Social History Smoking: non-smoker Alcohol Use: none Drug Use: none Reviewed Nursing Reviewed: Vital Signs, Abn. Noted, Nursing Assessment Constitutional: denies no symptoms reported, denies see HPI, denies chills, denies diaphoresis, denies fever, denies malaise, denies weakness, denies other EENTM: denies no symptoms reported, denies see HPI, denies eye pain, denies blurred vision, denies tearing, denies double vision, denies ear pain, denies ear discharge, denies nose pain, denies nose congestion, denies throat pain, denies throat swelling, denies mouth pain, denies mouth swelling, denies other Respiratory: denies no symptoms reported, denies see HPI, denies cough, denies orthopnea, denies shortness of breath, denies SOB with exertion, denies SOB at rest, denies stridor, denies wheezing, denies other Cardiovascular: denies no symptoms reported, denies see HPI, denies chest pain, denies edema, denies irregular heart rate, denies lightheadedness, denies palpitations, denies syncope, denies other Gastrointestinal: denies no symptoms reported, denies see HPI, denies abdomen distended; abdominal pain; denies blood streaked bowels, denies constipated, denies diarrhea, denies difficulty swallowing, denies nausea, denies poor seamus etite, denies poor fluid intake, denies rectal bleeding, denies vomiting, denies other Genitourinary: pain Musculoskeletal: denies no symptoms reported, denies see HPI, denies back pain, denies gout, denies joint pain, denies joint swelling, denies muscle pain, denies muscle stiffness, denies neck pain, denies other Skin: denies no symptoms reported, denies see HPI, denies change in color, denies change in hair/nails, denies dryness, denies lesions, denies lumps, denies rash, denies other Psychiatric/Neurological: denies no symptoms reported, denies see HPI, denies a nxiety, denies depressed, denies emotional problems, denies headache, denies numbness, denies paresthesia, denies pre-existing deficit, denies seizure, denies tingling, denies tremors, denies weakness, denies other Endocrine: denies no symptoms reported, denies see HPI, denies excessive sweating, denies flushing, denies intolerance to cold, denies intolerance to heat, denies increased hunger, denies increased thrist, denies increased urine, denies unexplained weight gain, denies unexplaned weight loss, denies other Hematologic/Lymphatic: denies no symptoms reported, denies see HPI, denies anemia, denies blood clots, denies easy bleeding, denies easy bruising, denies swollen glands, denies other Physical Exam General Appearance: No Apparent Distress, WD/WN HEENT: PERRL/EOMI, Normal ENT Inspection, TMs Normal, Pharynx Normal Neck: Non-Tender, Full Range of Motion, Supple, Normal Inspection Respiratory: chest non-tender, lungs clear, normal breath sounds, no respiratory distress, no accessory muscle use Cardiovascular: Normal Peripheral Pulses, Regular Rate, Rhythm, No Edema, No Gallop, No JVD, No Murmur Gastrointestinal: Normal Bowel Sounds, Soft, Tenderness (Suprapubic) Back: Normal Inspection, No CVA Tenderness, No Vertebral Tenderness Extremities: Normal Range of Motion, Non-Tender, Normal Inspection, No Pedal Edema, No Calf Tenderness, Normal Capillary Refill, Pelvis Stable Neurologic/Psychiatric: cost estimator II-XII NML as Tested, No Motor/Sensory Deficits, Alert, Normal Mood/Affect, Oriented x 3 Skin: Normal Color, Warm/Dry Lymphatic: No Adenopathy Results/Orders Results/Orders Orders - BARB VELASQUEZ MD Urinalysis (02/25/22 12:20) Cbc With Auto Diff (02/25/22 12:30) Comprehensive Metabolic Panel (02/25/22 12:30) Lipase (02/25/22 12:30) PT (02/25/22 12:30) Partial Thromboplastin Time. (02/25/22 12:30) Hcg Qualitative Serum (02/25/22 12:30) Saline Lock (02/25/22 12:30) Ct Abd/Pelvis Wo Iv Contrast (02/25/22 12:30) Urine Culture (02/25/22 12:26) Vital Signs Date Time Temp Pulse Resp B/P (MAP) Pulse Ox O2 Delivery O2 Flow Rate FiO2 02/25/22 12:17 97.8 83 18 158/88 (111) 99 Room Air* 0 21 02/25/22 12:17 97.8 83 18 02/25/22 12:17 97.8 83 18 99 Laboratory Tests Test 02/25/22 12:26 02/25/22 12:47 Urine Collection Type UNKNOWN Urine Color YELLOW Urine Appearance CLOUDY Urine Bilirubin NEGATIVE (NEGATIVE) Urine Ketones NEGATIVE (NEGATIVE) Urine Specific Murray 1.025 (1.005-1.030) Urine pH 6.0 (4.5-8.0) Urine Protein NEGATIVE (NEGATIVE) Urine Urobilinogen 0.2 E.U./dL (0.2) Urine Nitrate NEGATIVE (NEGATIVE) Urine Leukocyte Esterase NEGATIVE (NEGATIVE) Urine Glucose (Auto)(UA) NEGATIVE (NEGATIVE) Urine Blood 3+ (NEGATIVE) H Urine RBC 10-25 RBC/HPF (NONE SEEN) H Urine WBC 0-2 WBC/HPF (0-2) Urine Squamous Epithelial Cells MODERATE (<=FEW) Urine Bacteria MODERATE (NONE SEEN) H Urine Yeast FEW (NONE SEEN) White Blood Count 12.1 10^3/uL (4.5-11.0) H Red Blood Count 5.60 10^6/uL (4.00-5.20) H Hemoglobin 11.1 g/dL (12.0-15.0) L Hematocrit 39.7 % (36.0-46.0) Mean Corpuscular Volume 70.9 fL (78-100) L Mean Corpuscular Hemoglobin 19.8 pg (26-34) L Mean Corpuscular Hemoglobin Concent 28.0 g/dL (33-36.5) L Red Cell Distribution Width 28.1 % (11.5-14.5) H Platelet Count 376 10^3/uL (150-400) Mean Platelet Volume 9.8 fL (7.8-11.0) Neutrophils (%) (Auto) 83.1 % (41.0-85.0) Lymphocytes (%) (Auto) 11.9 % (24.0-44.0) L Monocytes (%) (Auto) 3.8 % (5.0-12.0) L Neutrophils # (Auto) 10.1 10^3/uL (1.8-7.7) H Lymphocytes # (Auto) 1.44 10^3/uL1 (1.0-4.8) Monocytes # (Auto) 0.5 10^3/uL (0.3-0.8) Absolute Immature Granulocyte (auto 0.01 10^3 u/L (0-2) Absolute Eosinophils (auto) 0.1 10^3/uL (0.0-0.2) Immature Granulocytes % 0.10 % (0.00-0.50) Eosinophils % 0.7 % (0.0-5.0) Basophils % 0.4 % (0.0-0.2) H Basophils # 0.1 10^3/uL (0.0-0.1) Prothrombin Time 9.6 SEC (9.1-11.5) Prothrombin Time INR (Non-Therap) 0.9 Activated Partial Thromboplast Time 24.2 SEC (22.5-33.1) Sodium Level 139 mmol/L (132-145) Potassium Level 3.8 mmol/L (3.6-5.2) Chloride Level 102.0 mmol/L (96-109) Carbon Dioxide Level 23.3 mmol/L (20.0-32) Anion Gap 17.5 Blood Urea Nitrogen 14 mg/dL (7-18) Creatinine 0.99 mg/dL (0.59-1.40) Estimated GFR () 76.4 (>/=60) Est GFR (CKD-EPI)(Non-Afr Guamanian) 63.1 (>/=60) BUN/Creatinine Ratio 14.0 Glucose Level 96 mg/dL (70-110) Calcium Level 8.9 mg/dL (8.4-10.5) Total Bilirubin 0.3 mg/dL (0.2-1.0) Aspartate Amino Transferase (AST) 14 U/L (0-35) Alanine Aminotransferase (ALT) 22 U/L (12-78) Alkaline Phosphatase 61 U/L (50-136) Total Protein 7.9 g/dL (6.4-8.2) Albumin 3.6 g/dL (3.4-5.0) Globulin 4.3 Albumin/Globulin Ratio 0.837 Lipase 76 U/L (114-286) L Serum HCG, Qualitative NEGATIVE (NEGATIVE) Progress Progress Patient here with abdominal pain could be kidney Stone. Something with her pelvis we will obtain a CT scan will obtain labs will provide pain control as necessary. [id number] possibly has inflamed cervix on CT scan urine appears dirty it is contaminated however patient has all the symptoms so we will continue to treat. Patient voiced understanding need to follow-up with PRODUCT ENGINEER and when to return to the ER. ER DEPART Departure Time of Disposition: 13:44 Disposition: 01 HOME / SELF CARE / HOMELESS Impression: Primary Impression: UTI (urinary tract infection) Condition: Improved Patient Instructions: Urinary Tract Infection Referrals: DAKOTAH OWUSU MD (PCP) PRIMARY CARE PROVIDER Additional Instructions: As discussed please follow-up with your PRODUCT ENGINEER within the next week. As well as your primary care provider. If you have any new persistent or worsening symptoms or concerns please seek medical attention. Please take all medications as prescribed. Duration or Time Spent with Pa: 30 Problem Qualifiers Primary Impression: UTI (urinary tract infection) Urinary tract infection type: site unspecified Hematuria presence: with hematuria Qualified Codes: N39.0 - Urinary tract infection, site not specified; R31.9 - Hematuria, unspecified BARB VELASQUEZ MD Feb 25, 2022 13:46
[2022-02-25 16:15] LABS: ANISOCYTOSIS 1+ (NEGATIVE); BAND NEUTROPHILS 1 % (2-6); LYMPHOCYTE 27 % (25-36); MONOCYTE 1 % (3-9); SEGMENTED NEUTROPHILS 71 % (31-76)
== END 2022-02-25 13:40 | disposition home or self-care (01) ==
LOC: ER 12:17
DX: N39.0 Urinary tract infection, site not specified (principal); R31.9 Hematuria, unspecified; E07.9 Disorder of thyroid, unspecified; Z87.440 Personal history of urinary (tract) infections; Z98.890 Other specified postprocedural states
CPT/HCPCS: 99284; 74176; 96372; 87086; 80053; 85025; 36415; 81001; 83690; 85610; 85730; 84703; J1885

== ENCOUNTER → 2022-05-05 | Outpatient (CLI) | payer MEDICAID ==
--- NOTE | 2022-05-06 12:14 | DIREP ---
PROCEDURE:US PELVIC FOLLOWED BY TRANSVAGINAL COMPARISON:[facility], CT, CT ABD/PELVIS W/O, 02/25/2022, 12:41 PM. INDICATIONS:N92.0 EXCESSIVE AND FREQUENT MENSTRUATION WITH REGULAR CYCLE TECHNIQUE:Pelvic ultrasound using transabdominal technique. Endovaginal images were also obtained for better assessment of the uterus and adnexa. FINDINGS: LMP: 04/20/2022 UTERUS:Size is 10.8 x 6.3 x 7.1 cm. The myometrium is inhomogeneous. Ill-defined endometrial myometrial junction. The uterus is slightly globular in shape which may be exaggerated by the scar present. ENDOMETRIUM:Thickness is 12 mm. Evaluation of the endometrium is limited on the transvaginal images due to uterine position. On a few images there are findings suspicious for an echogenic endometrial mass, measures 1.3 x 1.4 cm on image 24/53. This could be an artifact related to background heterogeneity due to adenomyosis. Alternatively, retained blood clot or polyp could be considered. No color Doppler assessment of this area. RIGHT OVARY:Not visualized due to bowel gas shadowing. No right adnexal mass demonstrated. LEFT OVARY:Normal appearance. 4.3 x 3.3 x 2.9 cm. A cyst is identified measuring approximately 2.0 cm. No internal septations or mural nodularity. CUL-DE-SAC:Normal. OTHER:Negative. CONCLUSION: 1. Uterus: Suspect adenomyosis. 2. Limited visualization of the endometrium. Possible endometrial mass may be related to background adenomyosis, retained blood clot or polyp. 3. Left ovarian cyst: Functional. Dictated by: TYSON Physician on 05/05/2022 at 05:48 PM ac
== END | disposition home or self-care (01) ==
LOC: RAD 10:28
PROVIDERS: ATTEND Nurse Practitioner Women's Health
DX: N92.0 Excessive and frequent menstruation with regular cycle (principal)
CPT/HCPCS: 76830; 76856; 93976

== ENCOUNTER → 2022-05-08 | Outpatient (CLI) | payer MEDICAID ==
[2022-05-08 11:15] LABS: MEAN CORP HGB 22.2 pg (26-34); RED CELL DISTRIBUTION WIDTH 16.3 % (11.5-14.5)
== END | disposition home or self-care (01) ==
LOC: LAB 10:58
PROVIDERS: ATTEND Nurse Practitioner Women's Health
DX: N92.0 Excessive and frequent menstruation with regular cycle (principal); E03.9 Hypothyroidism, unspecified; R25.2 Cramp and spasm
CPT/HCPCS: 36415; 83735; 84439; 84443; 85027

== ENCOUNTER → 2022-05-11 | Outpatient (CLI) | payer MEDICAID | END | disposition home or self-care (01) | LOC: LAB 13:51 | PROVIDERS: ATTEND Nurse Practitioner Women's Health | DX: E03.9 Hypothyroidism, unspecified (principal) | CPT/HCPCS: 36415; 83036; 83970; 84479; 86038; 86225; 86235; 86256; 86376; 86800 ==

== ENCOUNTER → 2022-06-17 | Outpatient (CLI) | payer MEDICAID | END | disposition home or self-care (01) | LOC: LAB 10:40 | PROVIDERS: ATTEND Nurse Practitioner Women's Health | DX: E03.9 Hypothyroidism, unspecified (principal) | CPT/HCPCS: 36415; 84439; 84443 ==